=== PATIENT | female | born 1975 | race Caucasian/White ===

== ENCOUNTER 2022-12-09 15:30 | Outpatient (RCR) | payer BC, SELFPAY | END 2023-03-01 11:07 | disposition home or self-care (01) | PROVIDERS: PCP Physician Assistant; Visit Provider Family Medicine | DX: M54.2 Cervicalgia (principal); M50.30 Other cervical disc degeneration, unspecified cervical region; M50.20 Other cervical disc displacement, unspecified cervical region; Z51.89 Encounter for other specified aftercare | CPT/HCPCS: 97110; 97140; 97161 ==